=== PATIENT | male | born 1965 | race Hispanic/Latino ===

== ENCOUNTER 2019-01-22 20:58 | Emergency (ER) | payer OTHER ==
[2019-01-22] MEDS ORDERED: Sodium Chloride 0.9% 1,000 ML IV STA (21:26)
[2019-01-22 21:50] LABS: BASO # 0.1 K/uL (0.0-0.2); BASO % 0.9 % (0.0-2.0); EOS # 0.3 K/uL (0.0-0.7); LYMPH # 2.6 K/uL (1.0-4.3); LYMPH % 38.8 % (20.0-40.0); MEAN CELL VOLUME 89.1 fl (80.0-94.0); MEAN CORPUSCULAR HEMOGLOBIN 30.5 pg (27.0-31.0); MEAN CORPUSCULAR HGB CONC 34.2 g/dL (33.0-37.0); MONO # 0.6 K/uL (0.0-0.8); MONO % 8.5 % (0.0-10.0); NEUT # 3.1 K/uL (1.8-7.0); NEUT % 46.8 % (50.0-75.0); NRBC % 0.1 % (0.0-0.0); RBC 4.6 Mil/uL (4.40-5.90); RED CELL DISTRIBUTION WIDTH 12.4 % (11.5-14.5); WHITE BLOOD COUNT 6.7 K/uL (4.8-10.8)
--- NOTE | 2019-01-22 21:50 | ED PDOC ---
Syncope/Near Syncope/Dizziness Time Seen by Provider: 01/22/19 21:17 Chief Complaint (Nursing): Dizziness/Lightheaded Chief Complaint (Provider): Dizziness/Lightheaded History Per: Patient History/Exam Limitations: no limitations Onset/Duration Of Symptoms: Days Current Symptoms Are (Timing): Still Present Additional Complaint(s): 53 y/o male with no significant PMHx presents to the ED for evaluation of worsening dizziness throughout the day to the point where he felt like he was about to faint. Patient describes dizziness as lightheadedness more than vertigo. Patient reports of recently having had head congestion further reporting of finishing a course of Z-pack. However, patient notes feeling of congestion have not improved. PMD: Mauro Crouch Past Medical History Reviewed: Historical Data, Nursing Documentation, Vital Signs Vital Signs: Last Vital Signs Temp 98.1 F 01/22/19 21:00 Pulse 90 01/22/19 21:00 Resp 16 01/22/19 21:00 BP 106/82 01/22/19 21:00 Pulse Ox 96 01/22/19 21:00 - Medical History PMH: No Chronic Diseases - Surgical History Surgical History: No Surg Hx - Family History Family History: States: Unknown Family Hx - Allergies Allergies/Adverse Reactions: Allergies Allergy/AdvReac Type Severity Reaction Status Date / Time No Known Allergies Allergy Verified 01/22/19 21:00 Review of Systems ROS Statement: Except As Marked, All Systems Reviewed And Found Negative Constitutional: Positive for: Other (head congestion) Neurological: Positive for: Dizziness Physical Exam - Reviewed Nursing Documentation Reviewed: Yes Vital Signs Reviewed: Yes - Physical Exam Appears: Positive for: No Acute Distress Head Exam: Positive for: ATRAUMATIC, NORMOCEPHALIC Skin: Positive for: Normal Color, Warm, Dry Eye Exam: Positive for: Normal appearance, EOMI, PERRL Neck: Positive for: Normal, Painless ROM, Supple Cardiovascular/Chest: Positive for: Regular Rate, Rhythm. Negative for: Murmur Respiratory: Positive for: Normal Breath Sounds. Negative for: Respiratory Distress Gastrointestinal/Abdominal: Positive for: Normal Exam, Soft. Negative for: Tenderness Back: Positive for: Normal Inspection. Negative for: L CVA Tenderness, R CVA Tenderness, Vertebral Tenderness Extremity: Positive for: Normal ROM. Negative for: Deformity Neurological/Psych: Positive for: Awake, Alert, Oriented. Negative for: Motor/Sensory Deficits - Laboratory Results Result Diagrams: 01/22/19 21:36 01/22/19 21:36 - ECG O2 Sat by Pulse Oximetry: 96 (RA) Pulse Ox Interpretation: Normal Medical Decision Making Medical Decision Making: Time: 2128 A/P: Workup for generalized weakness and dizziness -- No intracranial deficits noted at this time -- Basic labs and IV fluids ordered -- Will consider CT Brain if symptoms have not improved -- CT Head w/o Contrast -- BMP -- Troponin I -- CBC with Differentials -- CXR Portable -- Sodium Chloride IV 1000 mls/hr Scribe Attestation: Documented by Ramon Woodson, acting as a scribe for Anabell Carney MD. Provider Scribe Attestation: All medical record entries made by the Scribe were at my direction and personally dictated by me. I have reviewed the chart and agree that the record accurately reflects my personal performance of the history, physical exam, medi elisabeth decision making, and the department course for this patient. I have also personally directed, reviewed, and agree with the discharge instructions and disposition. Disposition - Clinical Impression Clinical Impression: Dizziness, Viral syndrome - Disposition Disposition: Routine/Home Disposition Time: 23:17 Condition: IMPROVED Additional Instructions: Follow up with PMD for further workup of possible high blood sugar. Increase rest and drink plenty of fluids while symptoms last. Instructions: Viral Syndrome (DC) Forms: [employer] (Georgian) Print Language: SPANISH
[2019-01-22 21:58] LABS: BLOOD UREA NITROGEN 19 mg/dl (9-20); GFR NON-AFRICAN AMERICAN > 60
[2019-01-23 07:40] VITALS: BP 118/77; PULSE 88; RESP 20; TEMP 97.7
--- NOTE | 2019-01-23 11:40 | RAD ---
Date of service: 01/22/2019 HISTORY: possible admission COMPARISON: Comparison chest 11/03/2011. TECHNIQUE: 1 view obtained. FINDINGS: LUNGS: No active pulmonary disease. PLEURA: No significant pleural effusion identified, no pneumothorax apparent. CARDIOVASCULAR: No aortic atherosclerotic calcification present. Normal cardiac size. No pulmonary vascular congestion. OSSEOUS STRUCTURES: No significant abnormalities. VISUALIZED UPPER ABDOMEN: Normal. OTHER FINDINGS: None. IMPRESSION: No active disease.
[2019-01-23 21:24] VITALS: O2SAT 96
== END 2019-01-22 23:38 | disposition home or self-care (01) ==
LOC: H.ER 20:58
DX: R42 Dizziness and giddiness (principal); B34.9 Viral infection, unspecified
CPT/HCPCS: 71045; 80048; 82948; 84484; 85025; 99285; J7030